=== PATIENT | female | born 1965 | race Caucasian/White ===

== ENCOUNTER 2018-01-08 17:46 | Emergency (ER) | payer MEDICAID | END 2018-01-08 19:57 | disposition home or self-care (01) | LOC: E/R 19:57 | DX: J02.9 Acute pharyngitis, unspecified (principal); J45.909 Unspecified asthma, uncomplicated | CPT/HCPCS: 99283; Z7502 ==

== ENCOUNTER 2018-07-27 16:36 | Emergency (ER) | payer MEDICAID ==
[2018-07-27] MEDS: KETOROLAC 60 MG INJ IM (19:11)
== END 2018-07-27 19:19 | disposition home or self-care (01) ==
LOC: FTE 16:36
DX: K08.89 Other specified disorders of teeth and supporting structures (principal); J45.909 Unspecified asthma, uncomplicated
CPT/HCPCS: 81025; 96372; 99284-25

== ENCOUNTER 2019-01-01 08:48 | Emergency (ER) | payer MEDICAID ==
[2019-01-01] MEDS: KETOROLAC 60 MG INJ IM (09:57)
== END 2019-01-01 10:41 | disposition home or self-care (01) ==
LOC: FTE 08:48
DX: K08.89 Other specified disorders of teeth and supporting structures (principal)
CPT/HCPCS: 81025; 96372; 99284-25

== ENCOUNTER 2019-03-25 09:55 | Emergency (ER) | payer SELFPAY, MEDICAID ==
[2019-03-25] MEDS: IBUPROFEN 600 MG TAB PO (11:01)
== END 2019-03-25 13:49 | disposition home or self-care (01) ==
LOC: FTE 09:55
DX: M25.561 Pain in right knee (principal)
CPT/HCPCS: 73562; 99283-25

== ENCOUNTER 2019-04-26 15:59 | Emergency (ER) | payer MEDICAID ==
[2019-04-26] MEDS: ACETAMINOPHEN 325 MG TAB PO (17:00)
[2019-04-26] MEDS: DEXAMETHASONE 10 MG/ML 1 ML INJ IM (17:01)
[2019-04-26] MEDS: ALBUTEROL 0.083% (NEB) 2.5 MG/3 ML AMP NEB (17:11)
[2019-04-26] MEDS: IPRATROPIUM (NEB) 0.5 MG/2.5 ML AMP NEB (17:11)
== END 2019-04-26 19:14 | disposition home or self-care (01) ==
LOC: FTE 15:59
DX: J45.901 Unspecified asthma with (acute) exacerbation (principal)
CPT/HCPCS: 71046; 94664; 96372; 99284-25

== ENCOUNTER 2019-08-03 15:04 | Emergency (ER) | payer MEDICAID | END 2019-08-03 16:46 | disposition home or self-care (01) | LOC: FTE 15:04 | DX: M25.561 Pain in right knee (principal); G89.29 Other chronic pain | CPT/HCPCS: 99282; Z7502 ==

== ENCOUNTER → 2019-08-16 | Emergency (ER) | payer MEDICAID | END | disposition home or self-care (01) | LOC: FTE 20:55 | DX: K04.7 Periapical abscess without sinus (principal) | CPT/HCPCS: 41800; 99282-25 ==

== ENCOUNTER → 2019-08-20 | Emergency (ER) | payer MEDICAID ==
[2019-08-20] MEDS: HYDROCODONE/APAP (5/325) TAB PO (10:41)
[2019-08-20] MEDS: ONDANSETRON (ODT) 4 MG TAB ODT (10:44)
== END | disposition home or self-care (01) ==
LOC: FTE 09:02
DX: K04.7 Periapical abscess without sinus (principal)
CPT/HCPCS: 10060; 99283-25